=== PATIENT | female | born 1955 | race Caucasian/White ===

== ENCOUNTER 2016-10-14 13:55 | Emergency (ER) | payer OTHER ==
[2016-10-14] MEDS ORDERED: KETOROLAC TROMETHAMINE 30 MG/ML VIAL IV ONE (14:00)
[2016-10-14] MEDS ORDERED: ASPIRIN 81 MG TAB.CHEW PO ONE (14:00)
[2016-10-14] MEDS ORDERED: KETOROLAC TROMETHAMINE 30 MG/ML VIAL ONE (14:09)
[2016-10-14] MEDS ORDERED: ASPIRIN 81 MG TAB.CHEW ONE (14:10)
--- NOTE | 2016-10-14 14:17 | ERNOTE ---
Chest Pain/Cardiac HPI Date of Service: 10/14/16 Chief Complaint: Chest Pain Time Seen by Provider: 10/14/16 14:14 Source: patient Immunizations: IMMUNIZATION HX Immunizations Up to Date Yes History of Influenza Vaccine No Hx Pneumococcal Vaccination No Allergies/Adverse Reactions: Allergies codeine Adverse Reaction (Mild, Verified 10/14/16 14:08) Nausea hydrocodone Adverse Reaction (Mild, Verified 10/14/16 14:08) Nausea Home Medications: HOME MEDICATIONS Vitb&C/Iron Fum/FA/Vit E/Aa#16 [Stress Formula Energy Tablet] 1 each PO DAILY [Last Taken 05/27/13] Albuterol Sulfate [Ventolin HFA] 2 puff IH Q6H PRN 7 Days 10/14/16 [Last Taken Unknown] Doxycycline Monohydrate 100 mg PO BID #20 tablet 10/14/16 [Last Taken Unknown] Naproxen [Naprosyn] 500 mg PO BID #60 tablet 10/14/16 [Last Taken Unknown] Omeprazole Magnesium [Prilosec Otc] 20 mg PO DAILY 10/14/16 [Last Taken Unknown] Prednisone [Deltasone] 20 mg PO BID #10 tablet 10/14/16 [Last Taken Unknown] Narrative: Noted episode of left shoulder pain that moved across the anterior portion of the chest she describes it as a muscle spasm-like in nature. Pain is reproducible on palpation and the shoulder pain is reproducible at the extremes of the range of motion of the left shoulder. Timing: other - improving Severity/Quality: mild Location: shoulder Activities at Onset: none Modifying Factors - Worsens: Present: nothing Nitro Today/Relief: 0.4 mg x 1, provided by EMS, mild relief Aspirin Treatment Today: 81 mg x 4, provided by ED Associated Symptoms: Present: denies symptoms Prior Chest Pain/Cardiac Workup: Reports: non-cardiac Review of Systems - Review of Systems Constitutional: Present: See HPI EYE: Present: no symptoms reported ENT: Present: no symptoms reported Respiratory: Present: no symptoms reported Cardiology: Present: chest pain Gastrointestinal/Abdominal: Present: no symptoms reported Genitourinary: Present: no symptoms reported Musculoskeletal: Present: no symptoms reported Skin: Present: no symptoms reported Neurological: Present: no symptoms reported Endocrine: Present: no symptoms reported Hematologic/Lymphatic: Present: no symptoms reported Psych: Present: no symptoms reported - Patient's Past Medical History Patient History - Medical: GERD Patient History - Cardiac/Respiratory: COPD Patient History - Surgical Procedures: Tubal Ligation, Other - left rotator cuff - Social History Does anyone smoke in the home?: Yes Smoking Status: Current every day smoker - Immunizations Immunizations Up to Date: Yes Hx Pneumococcal Vaccination: No History of Influenza Vaccine: No Physical Exam - Physical Exam General Appearance: Present: wd/wn, alert, mild distress Eye Exam: Normal inspection: bilateral, PERRL: bilateral Ears, Nose, Throat: Present: normal ENT inspection, H, normal pharynx Neck: Present: normal inspection, nontender Respiratory: Present: no respiratory distress, normal breath sounds, no accessory muscle use, lungs clear, chest tenderness Cardiovascular/Chest: Present: regular rate, rhythm, no murmur, normal peripheral pulses Gastrointestinal/Abdominal: Present: normal bowel sounds, nontender, nondistended, soft, no organomegaly Rectal Exam: Present: deferred Back Exam: Present: normal inspection, normal range of motion Extremity Exam: Present: normal inspection, no edema, decreased range of motion , other - left shoulder tenderness at the site of her pain Neurological Exam: Present: alert, oriented, normal mood/affect Skin Exam: Present: normal color, warm/dry Lymphatic Exam: Present: no adenopathy ED Progress - Results and Orders Patient's Lab Results:: I have reviewed the patient's lab results. - Vital Signs Patient's Vital Signs:: I have reviewed the patient's vital signs. Vital Signs: Vital Signs 10/14/16 13:58 Temperature 36.8 C Pulse Rate 97 Respiratory 18 Rate Blood Pressure 107/64 O2 Sat by Pulse 99 Oximetry - EKG EKG: NSR - X-Ray X-Ray #1 X-Ray: chest Interpretation: Reviewed by me - Progress/Reassessment Chief Complaint: Chest Pain Progress:: Unchanged - Transfer of Care Expected Disposition: Discharge Plan - Plan Plan: Unlikely this is cardiac pain she had a negative cardiac cath approximately 18 months ago in [place]. I suspect this is her rotator cuff that is acting up as well as her COPD and exacerbation of COPD. Departure - Departure Clinical Impression: COPD exacerbation Disposition: Home self-care Condition: Good Instructions: Chronic Obstructive Pulmonary Disease, [id number], Rotator Cuff Injury Referrals: Adi Castillo MD [Primary Care Provider] - Prescriptions: Albuterol Sulfate [Ventolin HFA] 2 puff IH Q6H PRN 7 Days PRN Reason: Wheezing Doxycycline Monohydrate 100 mg PO BID #20 tablet Naproxen [Naprosyn] 500 mg PO BID #60 tablet Prednisone [Deltasone] 20 mg PO BID #10 tablet
[2016-10-14 14:20] LABS: Hematocrit 42.3 % (37.0-47.0); Hemoglobin 14.6 gm/dL (12.5-16.0); Mean Cell Volume 89.2 fl (78-100); Mean Corpuscular Hemoglobin 30.8 pg (27-31); Mean Corpuscular Hgb Conc 34.5 g/dl (32-36); Neutrophil # 6.7 K/mm3 (1.3-6.0); Neutrophil % 65.7 % (42-75.0); Platelet Count 247 K/mm3 (150-450); Red Blood Count 4.74 M/mm3 (4.2-5.4); Red Cell Distribution Width 13.2 % (11.5-14.0); White Blood Count 10.1 K/mm3 (4.0-10.5)
[2016-10-14 14:37] LABS: ALT 25 U/L (19-67); AST 20 U/L (0-48); Albumin * 3.3 gm/dl (3.4-5.0); Alkaline Phosphatase * 77 U/L (50-170); Bilirubin, Total 0.6 mg/dL (0.0-1.1); Blood Urea Nitrogen 13 mg/dL (3-23); Ca. Corrected For Albumin 9.2 mg/dL (8.4-10.2); Carbon Dioxide 26.6 mmol/L (24-32.6); Chloride 105 mmol/L (97-106); Glucose * 111 mg/dL (70-110); Magnesium 1.8 mg/dL (1.2-2.8); Potassium 3.6 mmol/L (3.4-4.6); Sodium 140 mmol/L (132-142); Troponin I Less than 0.017 ng/ml (0.00-0.10)
--- OUTSIDE RECORDS SUMMARY | 2016-10-14 14:42 | XMS REPORT | Continuity of Care Document ---
:1955 Author Organization [place] [address] Care Team Providers Name Role Phone Unavailable Primary Care Provider Unavailable Source Comments This disclosure is being made pursuant to the [employer] program and maynot contain all information available regarding this patient.[facility] Active Allergies and Adverse Reactions Not on File Current Medications Be aware that medications may not be up to date as of this document. Alwaysverify current medications with the patient. Not on file Active Problems Not on file Social History Tobacco Use Types Packs/Day Years Used Date Never Assessed Plan of Care Health Maintenance Due Date Last Done Comments Retired-Pertussis Vaccine Adult 1973 Retired-Tetanus Vaccine Adult 1973 Pap Smear 11/14/1975 Mammogram 1994 Colonoscopy 2004 Well Adult Visit 2004 Zoster Vaccine 60+ 2014 Retired-INFLUENZA VACCINE 04/08/2015 Results from Last 3 Months Not on file
[2016-10-14 15:29] VITALS: BP 94/58
== END 2016-10-14 16:24 | disposition home or self-care (01) ==
LOC: ER 13:55
DX: J44.1 Chronic obstructive pulmonary disease with (acute) exacerbation (principal); Z72.0 Tobacco use; K21.9 Gastro-esophageal reflux disease without esophagitis